=== PATIENT | male | born 1945 | race Caucasian/White ===

== ENCOUNTER 2020-04-28 08:21 | Day surgery (SDC) | payer OTHER ==
[~2020-04-28] VITALS: Ht 188 cm; Wt 98.9 kg
[~2020-04-28 08:21] MED LIST: ASPI81CH PO; CAND16 PO; CAND4; CITRACAL + D M1 EACH; CVS GLUCOSAMN-1 EACH; FINA5 PO; MULT50L; TERA5 PO
--- NOTE | 2020-04-28 09:38 | NUR ---
Ambulatory in Day Surgery History, Chart, Medications and Allergies reviewed before start of procedure.Patient confirms NPO status and agrees with scheduled surgery. Patient reports completing Chlorhexadine shower X2 prior to admission to hospital.Surgical site prepped with 2% Chlorhexidine cloth wipe. Lungs clear T/O to Auscultation. Patient States Post-Procedure ride home has been arranged WITH
--- NOTE | 2020-04-28 13:46 | NUR ---
PT DENIES PAIN OR NAUSEA p FOOD/ DRINK. AMBULATES TO RESTROOM c STEADY GAIT, REPORTS ABLE TO VOID. IV DC'D, CATH INTACT AND PRESSURE DRESSING APPLIED. GIVEN GROIN SUPPORT, DRESSING CONTINUES TO BE CLEAN AND DRY. VERBALIZES AN UNDERSTANDING OF DC INSTRUCTIONS. PT TAKEN TO WIFES TRUCK VIA WC. DENIES ADDITIONAL QUESTIONS ON DEPARTURE.
== END 2020-04-28 23:48 | disposition home or self-care (01) ==
LOC: ORSCMMR 08:21 → ORD 10:00 → ORSCMMR 10:00
PROVIDERS: Surgery
PROC: 0YU50JZ Supplement Right Inguinal Region with Synthetic Substitute, Open Approach (ICD-10-PCS; principal; 2020-04-28 10:00)
DX: K40.90 Unilateral inguinal hernia, without obstruction or gangrene, not specified as recurrent (principal); I10 Essential (primary) hypertension; Z79.82 Long term (current) use of aspirin; Z79.899 Other long term (current) drug therapy; Z87.891 Personal history of nicotine dependence
CPT/HCPCS: C1781; J0690; J1100; J2250; J2405; J2704; J3010; J7120

== ENCOUNTER → 2023-02-18 | Outpatient (CLI) | payer OTHER | END | disposition home or self-care (01) | LOC: LAB SHORT 07:27 → PLD 07:27 | DX: D03.39 Melanoma in situ of other parts of face (principal) | CPT/HCPCS: 88305 ==

== ENCOUNTER 2023-04-30 12:03 | Day surgery (SDC) | payer OTHER ==
[~2023-04-30] VITALS: Ht 188 cm; Wt 99.7 kg
[~2023-04-30 12:03] MED LIST changes: +Atropine Sulfate 0.1 MG/ML 10ML SYR ONE; +Glycopyrrolate 0.2 MG/ML 1MLVIAL ONE; +Lactated Ringer's 1,000 ML IV ONE; +Lidocaine 2% 5 ML SDV ONE; +Lidocaine HCl/Pf 1% 5 ML VIAL ONE; +Methylene Blue 1% 100 MG/10 ML VIAL ONE; +Ondansetron HCl 2 MG / ML 2ML Vial ONE; +ePHEDrine Sulfate 50 MG/ML 1ML Injection ONE; +propofoL 50 ML IV ONE
[2023-04-30] MEDS ORDERED: CIDAFLEX TABLE1 EAC1 (13:19)
[2023-04-30] MEDS ORDERED: Lactated Ringer's 1,000 ML IV ONE (14:33)
[2023-04-30 15:58] VITALS: BP 162/106
== END 2023-04-30 16:02 | disposition home or self-care (01) ==
LOC: ORSCSDS 12:03
PROVIDERS: Surgery
PROC: 0DJD8ZZ Inspection of Lower Intestinal Tract, Via Natural or Artificial Opening Endoscopic (ICD-10-PCS; principal; 2023-04-30 14:15)
DX: Z12.11 Encounter for screening for malignant neoplasm of colon (principal); Z86.010 Personal history of colon polyps; K57.30 Diverticulosis of large intestine without perforation or abscess without bleeding; I10 Essential (primary) hypertension; Z79.899 Other long term (current) drug therapy; Z79.82 Long term (current) use of aspirin
CPT/HCPCS: J0461; J2001; J2405; J2704; J7120; Q9968